=== PATIENT | female | born 1975 | race Two or more races ===

== ENCOUNTER 2017-08-16 09:20 | Emergency (ER) | payer OTHER ==
[~2017-08-16] VITALS: Ht 157.5 cm; Wt 63.0 kg
[~2017-08-16 09:20] MED LIST: AMOX1TAB12 PO; CEFTIN500 MG PO; FIORICET TABLET1 TAB; INTESTINEX680 MG PO; LEVAQUIN500 MG; NASONEX17 GM NS; NO TOMA.; ORPH100T PO; PHENERGAN25 MG PO; PROTONIX40 MG; PROTONIX40 MG PO; PYRIDIUM200 MG; TUSSI PRES-B L120 M1 PO; ZANTAC300 MG PO; [UNRECOGNIZED DRUG - OTHER] PO
[2017-08-17] MEDS ORDERED: PROVENTIL HFA6.7 GM IH (08:23)
[2017-08-17] MEDS ORDERED: PHENAGIL CH TA1 EACH PO (08:23)
[2017-08-17] MEDS ORDERED: ALBUTEROL2.5 MG/3 M IH (08:23)
[2017-08-17] MEDS ORDERED: ZOFRAN ODT8 MG PO (08:23)
[2017-08-17] MEDS ORDERED: FLOVENT DISKU100 MCG IH (08:23)
== END 2017-08-17 08:35 | disposition home or self-care (01) ==
LOC: ER 09:20
DX: J45.998 Other asthma (principal); B34.9 Viral infection, unspecified; J11.1 Influenza due to unidentified influenza virus with other respiratory manifestations

== ENCOUNTER 2018-03-13 13:26 | Emergency (ER) | payer OTHER ==
[~2018-03-13] VITALS: Ht 157.5 cm; Wt 59.0 kg
[~2018-03-13 13:26] MED LIST changes: +ALBUTEROL2.5 MG/3 M IH; +FLOVENT DISKU100 MCG IH; +PHENAGIL CH TA1 EACH PO; +PROVENTIL HFA6.7 GM IH; +ZOFRAN ODT8 MG PO
== END 2018-03-14 06:48 | disposition home or self-care (01) ==
LOC: ER 13:26
DX: J45.998 Other asthma (principal); R51 Headache; R09.81 Nasal congestion; R05 Cough; R53.81 Other malaise; J11.1 Influenza due to unidentified influenza virus with other respiratory manifestations

== ENCOUNTER 2018-11-17 20:19 | Emergency (ER) | payer OTHER ==
[~2018-11-17] VITALS: Ht 157.5 cm; Wt 61.7 kg
[2018-11-18] MEDS ORDERED: ALBUTEROL2.5 MG/3 M IH ×2 (06:57→06:58)
[2018-11-18] MEDS ORDERED: ZITHROMAX500 MG PO ×2 (06:57→06:58)
[2018-11-18] MEDS ORDERED: ZANTAC300 MG PO ×2 (06:57→06:58)
[2018-11-18] MEDS ORDERED: SYMBICORT 16010.2 GM IH ×2 (06:57→06:58)
[2018-11-18] MEDS ORDERED: ZYNCOF 20-400120 ML PO ×2 (06:57→06:58)
== END 2018-11-18 07:12 | disposition home or self-care (01) ==
LOC: ER 20:19
DX: J45.998 Other asthma (principal)

== ENCOUNTER 2019-01-11 13:55 | Emergency (ER) | payer OTHER ==
[~2019-01-11] VITALS: Ht 152.4 cm; Wt 59.9 kg
[~2019-01-11 13:55] MED LIST changes: +SYMBICORT 16010.2 GM IH; +ZITHROMAX500 MG PO; +ZYNCOF 20-400120 ML PO
[2019-01-11] MEDS ORDERED: BUTALB-ACETAMI1 EACH PO (18:45)
[2019-01-11] MEDS ORDERED: ZANTAC300 MG PO (18:45)
== END 2019-01-11 19:15 | disposition home or self-care (01) ==
LOC: ER 13:55
DX: K52.89 Other specified noninfective gastroenteritis and colitis (principal)

== ENCOUNTER 2019-07-02 21:24 | Emergency (ER) | payer OTHER ==
[~2019-07-02] VITALS: Ht 157.5 cm; Wt 60.8 kg
[~2019-07-02 21:24] MED LIST changes: +BUTALB-ACETAMI1 EACH PO
[2019-07-02] MEDS ORDERED: FIORICET (21:57)
== END 2019-07-03 09:43 | disposition home or self-care (01) ==
LOC: ER 21:24
DX: J45.901 Unspecified asthma with (acute) exacerbation (principal)

== ENCOUNTER 2019-07-04 19:06 | Emergency (ER) | payer OTHER ==
[~2019-07-04] VITALS: Ht 157.5 cm; Wt 60.8 kg
[~2019-07-04 19:06] MED LIST changes: +FIORICET
== END 2019-07-04 21:39 | disposition home or self-care (01) ==
LOC: ER 19:06
DX: J06.9 Acute upper respiratory infection, unspecified (principal)

== ENCOUNTER 2020-02-17 15:29 | Emergency (ER) | payer OTHER ==
[~2020-02-17] VITALS: Ht 152.4 cm; Wt 62.6 kg
== END 2020-02-17 18:56 | disposition home or self-care (01) ==
LOC: ER 15:29 → CPU-OBS 15:31 → ER 18:56
DX: R07.89 Other chest pain (principal)

== ENCOUNTER 2020-10-25 23:33 | Emergency (ER) | payer OTHER ==
[~2020-10-25] VITALS: Ht 157.5 cm; Wt 59.0 kg
[2020-10-26] MEDS ORDERED: CARAFATE1 GM PO (02:43)
[2020-10-26] MEDS ORDERED: PANTOPRAZOLE SO20 MG PO (02:43)
== END 2020-10-26 02:47 | disposition home or self-care (01) ==
LOC: ER 23:33
DX: K29.60 Other gastritis without bleeding (principal); R10.13 Epigastric pain

== ENCOUNTER 2021-01-07 08:24 | Outpatient (CLI) | payer OTHER ==
[~2021-01-07 08:24] MED LIST changes: +CARAFATE1 GM PO; +PANTOPRAZOLE SO20 MG PO
== END 2021-01-07 08:39 | disposition home or self-care (01) ==
LOC: MAMO-SONO 08:24
PROVIDERS: ATTEND Internal Medicine Cardiovascular Disease
DX: N64.59 Other signs and symptoms in breast (principal); R10.84 Generalized abdominal pain; M46.47 Discitis, unspecified, lumbosacral region; R07.89 Other chest pain; Z12.31 Encounter for screening mammogram for malignant neoplasm of breast

== ENCOUNTER → 2021-01-07 10:19 | Outpatient (CLI) | payer OTHER | END | disposition home or self-care (01) | LOC: LAB 10:19 | PROVIDERS: ATTEND Internal Medicine Cardiovascular Disease | DX: I10 Essential (primary) hypertension (principal); E11.9 Type 2 diabetes mellitus without complications; E03.8 Other specified hypothyroidism; E78.2 Mixed hyperlipidemia; Z12.11 Encounter for screening for malignant neoplasm of colon; E55.9 Vitamin D deficiency, unspecified ==

== ENCOUNTER → 2021-01-09 09:42 | Outpatient (CLI) | payer OTHER | END | disposition home or self-care (01) | LOC: NUCLEAR 09:42 | PROVIDERS: ATTEND Internal Medicine Cardiovascular Disease | DX: I10 Essential (primary) hypertension (principal) ==

== ENCOUNTER 2021-04-12 22:37 | Emergency (ER) | payer OTHER ==
[~2021-04-12] VITALS: Ht 157.5 cm; Wt 59.0 kg
[2021-04-13] MEDS ORDERED: KETO10TA2 PO ×2 (01:51→01:52)
== END 2021-04-13 01:55 ==
LOC: ER 22:37
DX: S80.211A Abrasion, right knee, initial encounter (principal); M25.561 Pain in right knee; W18.49XA Other slipping, tripping and stumbling without falling, initial encounter; Y93.01 Activity, walking, marching and hiking; Y92.89 Other specified places as the place of occurrence of the external cause; Y99.8 Other external cause status

== ENCOUNTER 2021-06-05 07:53 | Emergency (ER) | payer OTHER ==
[~2021-06-05] VITALS: Ht 157.5 cm; Wt 60.8 kg
[~2021-06-05 07:53] MED LIST changes: +KETO10TA2 PO
== END 2021-06-05 11:21 | disposition home or self-care (01) ==
LOC: ER 07:53
DX: K52.89 Other specified noninfective gastroenteritis and colitis (principal); B34.9 Viral infection, unspecified; Z03.818 Encounter for observation for suspected exposure to other biological agents ruled out

== ENCOUNTER 2021-12-20 11:41 | Emergency (ER) | payer OTHER ==
[~2021-12-20] VITALS: Ht 157.5 cm; Wt 59.4 kg
== END 2021-12-20 15:40 | disposition home or self-care (01) ==
LOC: ER 11:41
DX: N39.0 Urinary tract infection, site not specified (principal); R11.10 Vomiting, unspecified; Z20.828 Contact with and (suspected) exposure to other viral communicable diseases

== ENCOUNTER 2022-08-04 15:50 | Emergency (ER) | payer OTHER ==
[~2022-08-04] VITALS: Ht 157.5 cm; Wt 57.2 kg
== END 2022-08-04 17:02 | disposition home or self-care (01) ==
LOC: ER 15:50
DX: M54.50 Low back pain, unspecified (principal)

== ENCOUNTER 2023-01-27 17:03 | Emergency (ER) | payer OTHER ==
[~2023-01-27] VITALS: Ht 157.5 cm; Wt 59.9 kg
[2023-01-27] MEDS ORDERED: PEPCID20 MG PO (21:30)
[2023-01-27] MEDS ORDERED: BUTALB-ACETAMI1 EACH PO (21:30)
[2023-01-27] MEDS ORDERED: ZOFRAN8 MG PO (21:30)
[2023-01-27] MEDS ORDERED: CARAFATE1 GM/10 ML PO (21:30)
== END 2023-01-27 21:59 | disposition home or self-care (01) ==
LOC: ER 17:03
PROVIDERS: General Practice
DX: K29.00 Acute gastritis without bleeding (principal); R10.13 Epigastric pain; G43.909 Migraine, unspecified, not intractable, without status migrainosus; Z20.822 Contact with and (suspected) exposure to COVID-19
CPT/HCPCS: 36415; 96365; 96366; 99284; J2270; J2405; J3490; J7042

== ENCOUNTER 2023-04-29 20:28 | Emergency (ER) | payer OTHER ==
[~2023-04-29] VITALS: Ht 157.5 cm; Wt 59.0 kg
[~2023-04-29 20:28] MED LIST changes: +CARAFATE1 GM/10 ML PO; +PEPCID20 MG PO; +ZOFRAN8 MG PO
[2023-04-30] LABS: HEMATOCRIT 37.6 % (36.0-45.00); HEMOGLOBIN 12.7 g/dL (12.0-15.00); MEAN CELL VOLUME 94.6 fL (80.00-100.00); MEAN CORPUSCULAR HEMOGLOBIN 31.9 pg (27.00-32.0); MEAN CORPUSCULAR HGB CONC 33.7 g/dl (32.0-36.0); PLATELET COUNT 277 K/uL (150-450); RED BLOOD COUNT 3.97 M/uL (4.00-6.00)
[2023-04-30 00:03] LABS: PH,URINE 5.5 (5.0-8.0); URINE APPEARANCE Clear; URINE BILIRRUBIN Negative (NEGATIVE); URINE BLOOD Trace; URINE COLOR Yellow; URINE GLUCOSE Negative (NEGATIVE); URINE LEUKOCYTE Small; URINE NITRATE Negative; URINE PROTEIN Negative (NEGATIVE)
[2023-04-30 00:06] LABS: URINE BACTERIA 1209.1 uL (0.0-1933); URINE EPITHELIAL CELLS 8.9 uL (0.0-38.8); URINE RBC 7.1 uL (0.0-20.8); URINE WBC 137.3 uL (0.0-23.2)
[2023-04-30 00:20] LABS: CALCIUM 9.2 mg/dL (8.5-10.1); CREATININE SERUM 0.86 mg/dL (0.55-1.02); GFR 71.04; POTASSIUM 3.93 mEq/L (3.5-5.1)
[2023-04-30] MEDS ORDERED: PYRIDIUM200 MG PO (02:38)
[2023-04-30] MEDS ORDERED: BACTRIM DS TAB1 EACH PO (02:38)
[2023-04-30] MEDS ORDERED: 8 HOUR PAIN RE650 M1 PO (02:38)
[2023-04-30] MEDS ORDERED: PEPCID AC20 MG PO (02:38)
== END 2023-04-30 02:43 | disposition home or self-care (01) ==
LOC: ER 20:29
DX: N39.0 Urinary tract infection, site not specified (principal)

== ENCOUNTER → 2023-05-07 | Emergency (ER) | payer OTHER ==
[~2023-05-07] VITALS: Ht 157.5 cm; Wt 54.4 kg
[~2023-05-07] MED LIST changes: +8 HOUR PAIN RE650 M1 PO; +BACTRIM DS TAB1 EACH PO; +PEPCID AC20 MG PO; +PYRIDIUM200 MG PO
== END | disposition left against medical advice (07) ==
LOC: ER 16:54
DX: Z53.21 Procedure and treatment not carried out due to patient leaving prior to being seen by health care provider (principal)

== ENCOUNTER 2024-06-20 07:30 | Emergency (ER) | payer OTHER ==
[~2024-06-20] VITALS: Ht 157.5 cm; Wt 60.8 kg
[2024-06-20] MEDS ORDERED: SUMATRIPTAN SUCCINATE 6 MG/0.5 ML VIAL SUBCUTANEO ONE ×2 (08:45→08:50)
[2024-06-20] MEDS ORDERED: FAMOtidine 10 MG/ML (4ML VIAL) IV ONE (08:45)
[2024-06-20] MEDS ORDERED: 0.9 % SODIUM CHLORIDE 1,000 ML IV ONE (08:45)
[2024-06-20] MEDS ORDERED: ONDANSETRON HCL 2 MG/ML VIAL IV ONE (08:45)
[2024-06-20] MEDS ORDERED: ONDANSETRON HCL 2 MG/ML VIAL ONE (08:50)
[2024-06-20] MEDS ORDERED: FAMOTIDINE/PF 20 MG/2 ML VIAL ONE (08:51)
[2024-06-20 09:28] LABS: PH,URINE 7.5 (5.0-8.0); URINE APPEARANCE Cloudy; URINE BILIRRUBIN Negative (NEGATIVE); URINE BLOOD Small; URINE COLOR Yellow; URINE GLUCOSE Negative (NEGATIVE); URINE KETONE 15 (NEGATIVE); URINE LEUKOCYTE Moderate; URINE NITRATE Negative; URINE PROTEIN Trace (NEGATIVE); URINE UROBILINOGEN 0.2 E.U./dl
[2024-06-20 09:32] LABS: HEMATOCRIT 39.2 % (36.0-45.00); HEMOGLOBIN 13.5 g/dL (12.0-15.00); MEAN CELL VOLUME 94.7 fL (80.00-100.00); MEAN CORPUSCULAR HEMOGLOBIN 32.6 pg (27.00-32.0); MEAN CORPUSCULAR HGB CONC 34.4 g/dl (32.0-36.0); PLATELET COUNT 214 K/uL (150-450); RED BLOOD COUNT 4.14 M/uL (4.00-6.00); RED CELL DISTRIBUTION WIDTH 12.1 % (11.5-14.5); URINE BACTERIA 654.6 uL (0.0-1933); URINE EPITHELIAL CELLS 17.2 uL (0.0-38.8); URINE RBC 92.8 uL (0.0-20.8); URINE WBC 316.1 uL (0.0-23.2)
[2024-06-20 09:42] LABS: URINE CAST 0.29 uL (0.0-1.40)
[2024-06-20 10:02] LABS: ALBUMIN 3.9 gm/dL (3.4-5.0); BILIRUBIN TOTAL 0.39 mg/dL (0.3-1.2); CALCIUM 9.3 mg/dL (8.5-10.1); CREATININE SERUM 0.77 mg/dL (0.55-1.02); GFR 80.35; GLOBULINA 3.8 G/DL (2.4-3.5); POTASSIUM 4.04 mEq/L (3.5-5.1); TOTAL PROTEIN 7.7 gm/dL (6.4-8.2)
[2024-06-20] MEDS ORDERED: CEFTRIAXONE SODIUM 1,000 MG VIAL IV ONE (10:30)
[2024-06-20] MEDS ORDERED: CEFTRIAXONE SODIUM 1,000 MG VIAL ONE (10:54)
[2024-06-20] MEDS ORDERED: ZOFRAN8 MG PO (11:05)
[2024-06-20] MEDS ORDERED: BUTALBIT-ACETA1 EACH PO (11:05)
[2024-06-20] MEDS ORDERED: PEPCID AC20 MG PO (11:05)
[2024-06-20] MEDS ORDERED: OSEL75CA PO (11:05)
[2024-06-20] MEDS ORDERED: BACTRIM DS TAB1 EACH PO (11:05)
[2024-06-20] MEDS ORDERED: ACETAMINOPHEN 500 MG GEL..CAP PO ONE (11:20)
== END 2024-06-20 13:10 | disposition home or self-care (01) ==
LOC: ER 07:32
PROVIDERS: General Practice
DX: J10.1 Influenza due to other identified influenza virus with other respiratory manifestations (principal); Z20.822 Contact with and (suspected) exposure to COVID-19